=== PATIENT | female | born 1945 | race Caucasian/White ===

== ENCOUNTER → 2021-05-09 10:44 | Outpatient (CLI) | payer BC, SELFPAY ==
--- NOTE | ~2021-05-09 | US_ITS ---
EXAMINATION: US right upper quadrant DATE: 05/09/2021 11:20 INDICATION: Unspecified jaundice. Hyperbilirubinemia. TECHNIQUE: Multiple grayscale and Doppler ultrasound images of the abdomen were obtained. COMPARISON: None FINDINGS: The aorta is obscured by bowel gas. The visualized portions of the head and body of the kasper creas are normal. The liver is normal without focal lesion, but sensitivity is decreased by obesity. The gallbladder is normal in size. No gallstones or gallbladder wall thickening. There is no sonograp hic Powell sign. The common duct is normal and measures 3 mm. There is mild atrophy of right kidney. IMPRESSION: 1. No etiology for the patient's symptoms. Reviewed, dictated and finalized at location A.
== END ==
PROVIDERS: PCP Family Medicine; Visit Provider Family Medicine
DX: R17 Unspecified jaundice (principal)
CPT/HCPCS: 76705

== ENCOUNTER 2023-06-12 10:48 | Outpatient (CLI) | payer BC, SELFPAY ==
--- NOTE | ~2023-06-12 | CT_ITS ---
EXAMINATION: CTA chest DATE: 06/12/2023 11:17 INDICATION: Aortic root enlargement. TECHNIQUE: Computed tomographic angiography (CTA) of the chest was performed with 100 mL Omnipaque-35 0 intravenous contrast. Automated exposure control and iterative reconstruction technique were employ ed. The dose-length product was 181.27 mGy-cm. Maximum intensity projection 3D-reconstructions of the aorta and other arteries were constructed by the technologist on a separate workstation. COMPARISON: None. FINDINGS: The lungs demonstrate mild atelectasis. There are a few nodules in left lung measuring up t o 3 mm, likely benign. No pleural effusion. There are nodules in the thyroid measuring up to 14 mm, l ikely not clinically significant. The heart size is normal. There are coronary artery calcifications. No pericardial effusion. 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 There is mild aort ic atherosclerosis. The aorta measures 4.0 cm at the sinuses of Valsalva, 3.2 cm at the sinotubular j unction, 3.9 cm in the mid ascending aorta, 3.0 cm at the aortic isthmus, and 2.6 cm in the mid desce nding aorta. There is dextroscoliosis of thoracic spine and levoscoliosis of thoracolumbar spine. IMPRESSION: 1. Ectasia of proximal aorta measuring up to 4.0 cm at the sinuses of Valsalva. Reviewed, dictated and finalized at location A. 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
[2023-06-12 11:13] LABS: Estimated Glomerular Filt Rate > 60
== END 2023-06-12 10:49 | disposition home or self-care (01) ==
PROVIDERS: PCP Family Medicine; Visit Provider Internal Medicine Cardiovascular Disease
DX: I77.89 Other specified disorders of arteries and arterioles (principal); I35.1 Nonrheumatic aortic (valve) insufficiency
CPT/HCPCS: 71275; Q9967

== ENCOUNTER 2025-03-04 09:26 | Outpatient (CLI) | payer BC, SELFPAY ==
--- OUTSIDE RECORDS SUMMARY | 2009-03-24 05:15 | XMS_ITS | Continuity of Care Document ---
Author Organization [facility] Address [address] [place] [address] [place] [address] Phone Care Team Providers Care Nsh Teacher Name Role Phone Clive Cerna Unavailable Unavailable Procedures Procedure Date Eye Exam & Treatment Eye Exam & Treatment Refraction Eye Exam & Treatment Advance Directives Directive Yes / No Effective Date File Name No Information Encounters Encounter Description Practice Location Reason(s) For Visit Diagnoses Date Provider Providers Copied on Encounter [facility], [address] [place] [address] [address], [place], [place], [id number], tel:[phone] [facility] No Information 1-200 9 Krishnasamy Clive. [address], [facility] [place], [place]. tel:[phone] [facility], [address] [place] [address] [address], [place], [place], [id number], [place] tel:[phone] [facility] No Information 0-200 8 Krishnasamy Clive. 2421 [facility] [address], [place], [address], [place]. tel:[phone] [facility], [address] [place] [address] [address], [place], [place], [id number], [place] tel:[phone] [facility] No Information 6-200 7 Dalia Damian. [address] [facility] [place] [id number]. tel:[phone] Family History Family Member Type Diagnosis Age At Onset No Information Payers Payer name Insurance type Covered democrat ID [id number] friend(s) [place] FEP BL [id number] Social History Type Description Quantity Date Captured Comments Sex Female Smoking Status No Information Chief Complaint And Reason For Visit No Information Reason For Referral Reason For Referral No Information History Of Present Illness Encounter Date Complaint History Of Prese nt Illness No Information Functional Status Date Functional Assessmen t No Information Instructions Date Instruction Additional Infor mation No Information Assessments Type Assessment Date No Information Patient Care Teams Name Effective Dates (start - stop) Status Members No Information
--- NOTE | ~2025-03-04 | CT_ITS ---
EXAMINATION: CTA chest abdomen DATE: 03/04/2025 09:57 INDICATION: Abdominal aortic aneurysm without rupture. TECHNIQUE: Computed tomographic angiography (CTA) of the chest and abdomen was performed without and with 100 mL Omnipaque-350 intravenous contrast. The dose- length product was 174.24 mGy-cm. Maximum intensity projection 3D- reconstructions of the aorta and other arteries were constructed by the technol tete on a separate workstation. COMPARISON: CTA chest dated 06/12/2023. FINDINGS: CHEST/Abdomen CTA: Stable ectatic ascending thoracic aortic aneurysm measuring 4 cm. There is enlargement of the pulmonary arteries consistent with pulmonary hypertension. No significant pleural or pericardial effusion. There is ectasia of the abdominal aorta. The celiac axis, SMA and renal arteries are widely patent. Stable saccular aneurysm of the right renal artery which appears largely thrombosed measuring 7 mm. There is severe dextroscoliosis of the thoracic spine and levoscoliosis of the thoracolumbar spine. Stable small nodules measuring 3 mm or less, likely benign. No pneumothorax. No focal airspace consolidation. No endobronchial lesions. IMPRESSION: 1. Stable ectasia of the thoracic aorta measuring 4 cm near the sinus of Valsalva. Reviewed, dictated and finalized at location O. IMPRESSION: 1. Stable ectasia of the thoracic aorta measuring 4 cm near the sinus of Valsal va.
--- OUTSIDE RECORDS SUMMARY | 2025-03-04 09:30 | XMS_ITS | Encounter Summary ---
Author Organization [facility] Address [address] [place] [address] Care Team Providers Care Segmental Paver Installer Name Role Phone Carlos Alberto Johnson MD Primary Care Provider Bertha Gamboa DO Primary Care Provider [phone] Gabriela Solano NP Primary Care Provider [phone] Encounter Details Date Type Department Care Team (Late st Contact Info) Description 12/02/2017 Orders Only [facility] Health Information Management [address] [place] [address] Scanning, Provider Social History Tobacco Use Types Packs/Day Years Used Date Smoking Tobacco: Never Smokeless Tobacco: Never Alcohol Use Standard Drinks/Week Comments Yes 0 (1 standard drink = 0.6 oz pur e alcohol) Comments Unknown Sex and Gender Information Value Date Recorded Sex Assigned at Not on file 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 Gender Identity Female 11/21/2020 12:43 PM CDT Sexual Orientation Straight 11/21/2020 12 :43 PM CDT documented as of this encounter Plan of Treatment Not on file documented as of this encounter Procedures Procedure Name Priority Date/Time Associated Diagnosis Comments SCAN - RADIOLOGY/IMAGING 12/01/2017 CARDIOLOGY DOCUMENT SCAN 12/01/2017 documented in this encounter Results * SCAN - RADIOLOGY/IMAGING (12/01/2017) Anatomical Region Laterality Modality Other us Provider Scanning Final Result * Cardiology Document Scan (12/01/2017) Anatomical Region Laterality Modality Other us Provider Scanning CV CARDIAC SERVICES PROCEDURES Edited Result - Final documented in this encounter Visit Diagnoses Not on filedocumented in this encounter Care Teams Segmental Paver Installer Relationship Specialty Start Date End Date Carlos Alberto Johnson MD [address] [place] [address] PCP - General 10/11/16 05/18/20 Bertha Gamboa DO [address] [place] [address] PCP - General Family Medicine 05/19/20 03/11/24 Gabriela Solano NP [address] [place] [address] PCP - General Internal Medicine 03/12/24 documented as of this encounter
--- OUTSIDE RECORDS SUMMARY | 2025-03-04 09:30 | XMS_ITS | Clinical Summary ---
Author Organization [facility] [address] Address [address] [place] [address] Care Team Providers Care Strike On Machine Operator Name Role Phone Gabriela Solano NP Primary Care Provider [phone] Allergies Active Allergy Reactions Criticality Noted Date Comments Clarithromycin Unknown Low Clonidine Hcl Unknown Low Lisinopril Unknown Low 12/22/2017 Metoprolol Rash Medium 11/25/2024 Nickel Rash Medium 06/03/2014 Valsartan Unknown Low Medications aspirin (ADULT LOW DOSE ASPIRIN) 81 mg tablet Take 1 tablet (81 mg total) by mouth daily. 09/24/2017 Active Vitamin D3 50 mcg (2,000 unit) capsule Take 1 capsule (2,000 Units total) by mouth 3 (three) times a week 04/24/2022 Active amLODIPine (NORVASC) 10 mg tablet Take 1 tablet (10 mg total) by mouth daily 90 tablet 3 03/17/2024 Active losartan (COZAAR) 50 mg tablet TAKE 1 TABLET(50 MG) BY MOUTH DAILY 90 tablet 3 07/09/2024 Active rosuvastatin (CRESTOR) 5 mg tablet TAKE 1/2 TABLET BY MOUTH DAILY 45 tablet 2 08/20/2024 Active gabapentin (NEURONTIN) 400 mg capsule Take 1 capsule (400 mg total) by mouth 2 (two) times a day 60 capsule 3 11/29/2024 Active Active Problems Problem Noted Date Diagnosed Date Venous insufficiency 11/25/2024 Mixed hyperlipidemia 05/01/2022 Coronary artery disease invo lving stebbins coronary artery of stebbins heart without angina pectoris 12/29/2017 S/P coronary artery stent placement 12/29/2017 History of non-ST elevation myocardial infarctio n (NSTEMI) 12/22/2017 Presence of stent in coronary artery 12/22/2017 Asymptomatic varicose veins 03/21/2017 Aortic root enlargement 03/21/2017 Benign hypertension 10/09/2015 Overview (10/18/2016): HTN (hypertension), benign PVC's (premature ventricular contractions) 10/08 Overview (10/18/2016): PVC's (premature ventricular contractions) Aortic valve insufficiency 10/09/2015 Overview (10/18/2016): Aortic valve insufficiency, unspecified etiology Dizziness 04/10/2015 Overview (10/18/2016): Dizziness Osteopenia 07/13/2013 Osteoporosis 09/24/2012 Lumbago 06/04/2011 Notalgia 06/04/2011 Scoliosis 06/04/2011 Resolved Problems Problem Noted Date Diagnosed Date Resolved Date Dyslipidemia 12/29/2017 11/06/2022 Surgical History Surgery Date Site/Laterality Comments OOPHORECTOMY OOphorectomy TONSILLECTOMY Tonsillectomy BREAST BIOPSY Breast biopsy CARDIAC STENT PLACEMENT 12/02/2017 Medical History Medical History Date Comments Hypertension Hypertension Hx Other Medical Presyncope Acquired scoliosis Scoliosis Hx Other Medical Osteopenia Hx Other Medical Varicose Veins left leg Hx Other Medical Arrhythmias Family History Medical History Relation Name Comments Heart attack Father 2 Myocardial Infa rction; Cause of : Myocardial Infarction Relation Name Status Comments Father 1 (Age 59) Father 2 Social History Tobacco Use Types Packs/Day Years Used Date Smoking Tobacco: Never Smokeless Tobacco: Never Tobacco Cessation:Counseling Given: Not Answered Alcohol Use Standard Drinks/Week Comments Yes 0 (1 standard drink = 0.6 oz pur e alcohol) Comments Unknown Sex and Gender Information Value Date Recorded Sex Assigned at Not on file 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 Gender Identity Female 11/21/2020 12:43 PM CDT Sexual Orientation Straight 11/21/2020 12 :43 PM CDT Obstetrics History Last Filed Vital Signs Vital Sign Reading Time Taken Comments Blood Pressure 150/74 11/25/2024 11:00 AM CDT Pulse 93 11/25/2024 11:00 AM CDT Temperature - - Respiratory Rate 15 05/19/2020 9:35 AM STAVE AND BOLT EQUALIZER Oxygen Saturation 96% 11/25/2024 11:00 AM CDT Inhaled Oxygen Concentration - - Weight 52.3 kg (115 lb 6.4 oz) 11/25/2024 11:00 AM CDT Height 152.4 cm (5') 11/25/2024 11:00 AM CDT Body Mass Index 22.54 11/25/2024 11:00 AM CDT Plan of Treatment Health Maintenance Due Date Last Done Comments Depression Screening 1945 DTaP/Tdap/Td Vaccine (1 - Tdap) 11/19/1954 Hepatitis B Screening 11/19/1961 Pneumococcal vaccine 65+ (1 of 1 - PCV) 11/19/1993 Zoster Vaccine (1 of 2) 11/19/1993 Well Visit 65+ 11/19/2008 Osteoporosis Screening-Bone Density Scan 10/08/2015 10/07/2013, 09/24/2012 Fall Risk Assessment 05/19/2021 05/19/2020 Influenza Vaccine (#1) 2025 Procedures Procedure Name Priority Date/Time Associated Diagnosis Comments BONE MINERAL DENSITY 10/07/2013 from Last 3 Months or Most Recently Relevant to Health Maintenance Results * BONE MINERAL DENSITY (10/07/2013) Anatomical Region Laterality Modality Radiographic Paz ging Narrative 10/07/2013 Ordered by an unspecified provider. Historical Provider MD MENA DXA PROCEDURES Final Result from Last 3 Months or Most Recently Relevant to Health Maintenance Insurance [facility] FEDERAL MEDICARE [facility] Address: [address] [place] [phone] [facility] FEDERAL Care Teams Strike On Machine Operator Relationship Specialty Start Date End Date Gabriela Solano NP PCP - General Internal Medicine 03/12/24
--- OUTSIDE RECORDS SUMMARY | 2025-03-04 09:30 | XMS_ITS | Clinical Summary ---
Author Organization [facility] Address [address] [place] [address] Care Team Providers Care Solar Energy Systems Engineer Name Role Phone Carlos Alberto Johnson MD Primary Care Provider [phone] Source Comments [facility],non-owned Affiliates and Associated Physician Practices is amultiple site organization consisting of ambulatory clinics and hospital sitesin [place], [place], [place] and [place]. This disclosure is being madepursuant to the Care Everywhere program and may not contain all information available regarding this patient. Last updated [facility] [employer] Allergies Active Allergy Reactions Criticality Noted Date Comments Clarithromycin Rash 09/13/2009 Valsartan 09/13/2009 Cough Medications * Be aware that medications may not be up to date on this document. Alwaysverify current medications with the patient. rosuvastatin (Crestor) 5 MG tablet Take 2.5 mg by mouth once daily 04/05/2022 Active nitroGLYCERIN (Nitrostat) 0.[address] 1 TABLET(0.4 MG TOTAL) UNDER THE TONGUE EVERY 5 MINUTES NEEDED FOR CHEST PAIN. 12/13/2021 Active losartan (Cozaar) 50 MG tablet TAKE 1 TABLET(50 MG) BY MOUTH DAILY 04/24/2022 Active gabapentin (Neurontin) 300 MG capsule Take one Capsule TID 12/03/2021 Active Premarin 0.625 MG/GM vaginal cream APPLY PEA SIZE AMOUNT TO AFFECTED AREA EVERY NIGHT AT BEDTIME FOR 2 WEEKS 02/14/2022 Active aspirin EC (Ecotrin) 81 MG tablet Take 81 mg by mouth once daily Active amLODIPine (Norvasc) 10 MG tablet Take 10 mg by mouth once daily 04/05/2022 Active Active Problems Patient Care Coordination No te Formatting of this note migh t be different from the original. Primary Care Provider: Carlos Alberto Johnson MD [address] [place] [address] Referring Provider: Carlos Alberto Johnson MD [address] [place] [address] Problem Noted Date Diagnosed Date Vaginal enterocele 09/13/2009 Prolapse of vaginal vault after hysterectomy 09/2009 Family History Medical History Relation Name Comments Heart Disease Father Hypertension Father Cancer Mother cancer of volve per pt 04/2022 Hypertension Mother Depression Sister Relation Name Status Comments Father Mother Sister Social History Tobacco Use Types Packs/Day Years Used Date Smoking Tobacco: Never Smokeless Tobacco: Never Tobacco Cessation:Counseling Given: Not Answered Alcohol Use Standard Drinks/Week Comments No 0 (1 standard drink = 0.6 oz pur e alcohol) Comments No Sex and Gender Information Value Date Recorded Sex Assigned at Not on file Legal Sex Female 5:56 PM COMMISSIONING ENGINEER Gender Identity Not on file Sexual Orientation Not on file Last Filed Vital Signs Vital Sign Reading Time Taken Comments Blood Pressure 153/70 05/14/2024 11:42 AM CDT Pulse 87 05/14/2024 11:42 AM CDT Temperature 36.5 C (97.7 F) 05/14/2024 11:42 AM CDT Respiratory Rate - - Oxygen Saturation - - Inhaled Oxygen Concentration - - Weight 53.1 kg (117 lb) 05/14/2024 11:42 AM CDT Height 152.4 cm (5') 05/14/2024 11:42 AM CDT Body Mass Index 22.85 05/14/2024 11:42 AM CDT Plan of Treatment Upcoming Encounters Date Type Department Care Team (Late st Contact Info) Description 05/19/2025 10:30 AM COMMISSIONING ENGINEER Office Visit [facility] - [facility] [address] [place] [address] Yessica Montesinos MD [address] [place] [address] 05/19/2025 11:00 AM COMMISSIONING ENGINEER Appointment [facility] [address] [place] [address] Health Maintenance Due Date Last Done Comments DTAP/TDAP/TD VACCINES (1 - Tdap) 11/19/1962 PNEUMOCOCCAL VACCINE 50+ (1 of 1 - PCV) 11/19/1993 ZOSTER VACCINE (1 of 2) 11/19/1993 Respiratory Syncytial Virus (RSV) Vaccine Pt: or over 60 yrs (1 - 1-dose 75+ series) 11/19/2018 COVID-19 VACCINE (1 - 2023-2 5 season) 2024 DEPRESSION SCREENING 07/14/2024 INFLUENZA VACCINE (#1) 2025 BONE DENSITY TESTING Completed 10/07/2013, 09/24/2012 HEPATITIS B VACCINE Aged Out No longe r eligible based on patient's age to complete this topic HIB VACCINE Aged Out No longer eligi ble based on patient's age to complete this topic HPV VACCINE Aged Out No longer eligi ble based on patient's age to complete this topic MENINGOCOCCAL (Group B) VACCINE SHARED DECISION-MAKING Aged Out No longer eligible based on patient's age to complete this topic MENINGOCOCCAL GROUPS A/C/Y/W VACCINE Aged Out No longer eligible b ased on patient's age to complete this topic Insurance [facility] Care Teams Solar Energy Systems Engineer Relationship Specialty Start Date End Date Carlos Alberto Johnson MD [address] [place] [address] PCP - General 08/23/09
--- OUTSIDE RECORDS SUMMARY | 2025-03-04 09:30 | XMS_ITS | Clinical Summary ---
Author Organization [facility] Address [address] [place] [address] Phone Care Team Providers Care Fiction Writer Name Role Phone Carlos Alberto Johnson MD Primary Care Provider [phone] Allergies Active Allergy Reactions Criticality Noted Date Comments Clonidine Hcl Other (See Comments) 06/03/2014 . Nickel Rash Low 06/03/2014 Unclassified Drug Other (See Comments) 06/03/20 14 All HBP medications Medications amLODIPine (NORVASC) 10 mg tablet 05/23/2014 Active VITAMIN D2 50,000 unit capsule 05/04/2014 Active gabapentin (NEURONTIN) 300 mg capsule 05/24/2014 Active losartan (COZAAR) 50 mg tablet 05/07/2014 Active aspirin (ECOTRIN EC) 81 mg Tablet, Delayed Release (E.C.) Take 81 mg by mouth daily. Active rosuvastatin calcium (CRESTOR ORAL) Take 2.5 mg by mouth. Active Active Problems Patient Care Coordination No te Formatting of this note migh t be different from the original. Primary Care: Carlos Alberto Johnson MD Referring Provider: Carlos Alberto Johnson MD [address] [place] [address] Other: Problem Noted Date Diagnosed Date Encounter for screening mammogram for high-risk patient 06/08/2014 Resolved Problems Problem Noted Date Diagnosed Date Resolved Date Lump or mass in breast 06/03/201406/03 Abnormal mammogram 06/03/2014 5 Family History Medical History Relation Name Comments Heart Failure Father Diabetes Maternal Uncle Diabetes Paternal Grandfather Diabetes Paternal Grandmother Relation Name Status Comments Father Maternal Uncle Paternal Grandfather Paternal Grandmother Social History Tobacco Use Types Packs/Day Years Used Date Smoking Tobacco: Never Smokeless Tobacco: Never Alcohol Use Standard Drinks/Week Comments No 0 (1 standard drink = 0.6 oz pur e alcohol) Comments No Sex and Gender Information Value Date Recorded Sex Assigned at Not on file Legal Sex Female 2:21 PM CDT Gender Identity Not on file Sexual Orientation Not on file Last Filed Vital Signs Vital Sign Reading Time Taken Comments Blood Pressure 126/62 05/28/2019 11:12 AM REMELT SUGAR BOILER Pulse 93 05/19/2017 10:14 AM REMELT SUGAR BOILER Temperature - - Respiratory Rate - - Oxygen Saturation - - Inhaled Oxygen Concentration - - Weight 58 kg (127 lb 12.8 oz) 05/28/2019 11:12 A M REMELT SUGAR BOILER Height 152.4 cm (5') 05/28/2019 11:12 AM REMELT SUGAR BOILER Body Mass Index 24.96 05/28/2019 11:12 AM REMELT SUGAR BOILER Plan of Treatment Health Maintenance Due Date Last Done Comments DTAP/TDAP/TD VACCINES (1 - Tdap) 11/19/1962 PNEUMOCOCCAL VACCINE 50+ YEARS (1 of 1 - PCV) 11/19/18 94 ZOSTER VACCINE (1 of 2) 11/19/1993 OSTEOPOROSIS SCREENING 11/19/2008 RSV VACCINE (60+ or ) (1 - 1-dose 75+ series) 11/19/2018 INFLUENZA VACCINE (#1) 2025 Insurance [facility] FEDERAL Advance Directives For more information, please contact: [phone] Documents on File Type Date Recorded Patient Recruiting Team Lead Expl anation Advance Directive POA 05/13/2016 10:01 AM Advance Directive POA Care Teams Fiction Writer Relationship Specialty Start Date End Date Carlos Alberto Johnson MD [address] [place] [address] PCP - General Family Practice 06/03/14
[2025-03-04 09:50] LABS: Estimated Glomerular Filt Rate > 60
== END 2025-03-04 09:27 | disposition home or self-care (01) ==
PROVIDERS: PCP Family Medicine; Visit Provider Nurse Practitioner
DX: I71.40 Abdominal aortic aneurysm, without rupture, unspecified (principal)
CPT/HCPCS: 71275; 74175; Q9967

== ENCOUNTER 2025-06-21 16:18 | Outpatient (CLI) | payer BC, SELFPAY ==
--- NOTE | ~2025-06-21 | US_ITS ---
EXAMINATION: US carotid duplex BI DATE: 06/21/2025 16:55 INDICATION: Dizziness. Syncope. TECHNIQUE: Grayscale, color Doppler, and pulsed Doppler images of the cervical carotid arteries were obtained. The degree of vessel stenosis is placed in one of the following categories: normal, <50%, 50-69%, >=70% but less than near- occlusion, near-occlusion, or total occlusion. Note that percent stenosis relative to normal distal artery lumen diameter is indirectly measured from velocity measurements as described by Edd, et al. Radiology 2003; 229:340-346. COMPARISON: CT brain 11/24/2018. Carotid Doppler exam dated 10/18/2015. FINDINGS: RIGHT: The right common carotid artery (CCA) peak systolic velocity (PSV) is 62 cm/s. The right internal carotid artery (ICA) PSV is 70 cm/s. The right ICA end- diastolic velocity (EDV) is 18 cm/s. The right ICA/CCA PSV ratio is 1.1. Grayscale and color Doppler images yield an estimate of less than 50% diameter reduction from plaque in the ICA. There is antegrade flow in the right vertebral artery. LEFT: The left CCA PSV is 60 cm/s. The left ICA PSV is 63 cm/s. The left ICA EDV is 12 cm/s. The left ICA/CCA PSV ratio is 1.1. Grayscale and color Doppler images yield an estimate of less than 50% diameter reduction from plaque in the ICA. There is antegrade flow in the left vertebral artery. IMPRESSION: 1. Antegrade flow in both vertebral arteries. 2. No hemodynamically significant obstruction of common and internal carotid arteries in the neck. Interpretation based on NASCET criteria. Reviewed, dictated and finalized at location T. BUILDER AND ERECTOR IMPRESSION: 1. Antegrade flow in both vertebral arteries. 2. No hemodynamically significant obstruction of common and internal carotid ar teries in the neck. Interpretation based on NASCET criteria.
--- OUTSIDE RECORDS SUMMARY | 2025-06-21 18:59 | XMS_ITS | Clinical Summary ---
Author Organization [facility] Address [address] [place] [address] Care Team Providers Care Business Systems Lead Name Role Phone Gabriela Solano APRN-OYSTER SHIPPER Primary Care Provider + Source Comments [facility] [employer] [employer],non-owned Affiliates and Associated Physician Practices is amultiple site organization consisting of ambulatory clinics and hospital sitesin [place], [place], [place] and [place]. This disclosure is being madepursuant to the Care Everywhere program and may not contain all information available regarding this patient. 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 Breast Care [address] [place] [address] Discharge Disposition: Home or Self Care 05/19/2025 Travel from Last 3 Months Family History Medical History Relation Name Comments [...] on file Legal Sex Female 5:56 PM INDUSTRIAL GAS FITTER Gender Identity Not on file Sexual Orientation Not on file Last Filed Vital Signs Vital Sign Reading Time Taken Comments Blood Pressure 119/56 05/19/2025 11:46 AM INDUSTRIAL GAS FITTER Pulse 76 05/19/2025 11:46 AM INDUSTRIAL GAS FITTER Temperature 36.8 C (98.2 F) 05/19/2025 11:46 AM INDUSTRIAL GAS FITTER Respiratory Rate - - Oxygen Saturation - - Inhaled Oxygen Concentration - - Weight 51.3 kg (113 lb) 05/19/2025 11:46 AM INDUSTRIAL GAS FITTER Height 149.9 cm (4' 11) 05/19/2025 11:46 AM INDUSTRIAL GAS FITTER Body Mass Index 22.82 05/19/2025 11:46 AM INDUSTRIAL GAS FITTER Plan of Treatment Upcoming Encounters Date Type Department Care Team (Late st Contact Info) Description 05/25/2026 11:00 AM INDUSTRIAL GAS FITTER Appointment [address] [address] Health Maintenance Due Date Last Done Comments DTAP/TDAP/TD VACCINES (1 - Tdap) 11/19/1962 PNEUMOCOCCAL VACCINE 50+ (1 of 1 - PCV) 11/19/1993 ZOSTER VACCINE (1 of 2) 11/19/1993 Respiratory Syncytial Virus (RSV) Vaccine Pt: or over 60 yrs (1 - 1-dose 75+ series) 11/19/2018 DEPRESSION SCREENING 07/14/2024 COVID-19 VACCINE ( season) 2025 03/13/2022, 06/22/2021, 10/20/2020, Additional history exists INFLUENZA VACCINE (#1) 2025 BONE DENSITY TESTING Completed 10/07/2013, 09/25/19 13 HEPATITIS B VACCINE Aged Out No longe [...] A/C/Y/W VACCINE Aged Out No longer eligible based on patient's age to complete this topic Procedures Procedure Name Priority Date/Time Associated Diagnosis Comments MAMMO BILAT SCREENING W OWEN Routine 05/19/2025 10:39 AM INDUSTRIAL GAS FITTER Encounter for screening mammogram for malignant neoplasm of breast from Last 3 Months Results * Mammo Bilat Screening W Owen (05/19/2025 10:39 AM INDUSTRIAL GAS FITTER) Anatomical Region Laterality Modality Breast Bilateral Mammography 05/19/2025 12:3 9 PM INDUSTRIAL GAS FITTER Impressions 05/19/2025 12:39 PM INDUSTRIAL GAS FITTER IMPRESSION: No mammographic evidence of malignancy in either breast. ASSESSMENT: BI-RADS CATEGORY 1: NEGATIVE. RECOMMENDATION: Bilateral screening mammogram in one year. Thank you for allowing us to participate in the care of your patient. [facility] Breast Care utilizes [employer] as a reminder system to notify patients of their next recommended mammogram. > Interpreting Provider: Letty Mendez MD on 05/19/2025 12:39 PM Narrative 05/19/2025 12:39 PM INDUSTRIAL GAS FITTER EXAMINATION: Digital screening mammogram. Low-dose full-field digital breast tomosynthesis examination was performed with synthetic 2D images. Computer assisted detection was utilized. DATE: 05/19/2025 10:40 AM PRIOR: 2023 and prior mammograms dating back to 2021. BREAST PARENCHYMAL DENSITY: Category C: The breasts are heterogeneously dense which may obscure small masses. FINDINGS: No suspicious masses, areas of architectural distortion or microcalcifications are evident on synthetic 2D mammogram or tomosynthesis images. There has been no significant interval change since the prior examination. us Yessica Montesinos MD MAMMO ORDERABLES Final Result from Last 3 Months Insurance [facility] Care Teams Business Systems Lead Relationship Specialty Start Date End Date Gabriela Solano, COAL CAGER-OYSTER SHIPPER [address] [place] [address] PCP - General Nurse Practitioner Family 05/19/25
--- OUTSIDE RECORDS SUMMARY | 2025-06-21 18:59 | XMS_ITS | Clinical Summary ---
Author Organization [facility] Address [address] [place] [address] Phone Care Team Providers Care Police Captain Name Role Phone Carlos Alberto Johnson MD Primary Care Provider [phone] Allergies Active Allergy Reactions Criticality Noted Date [...] Johnson MD [address] [place] [address] Other: Problem Noted Date Diagnosed Date Encounter for screening mammogram for high-risk patient 06/08/2014 Resolved Problems Problem Noted Date Diagnosed Date Resolved Date Lump or mass in breast 06/03/201406/03 Abnormal mammogram 06/03/2014// 5 Family History Medical History Relation Name [...] Comments Blood Pressure 126/62 05/28/2019 11:12 AM CRIMINALIST TECHNICIAN Pulse 93 05/19/2017 10:14 AM CRIMINALIST TECHNICIAN Temperature - - Respiratory Rate - - Oxygen Saturation - - Inhaled Oxygen Concentration - - Weight 58 kg (127 lb 12.8 oz) 05/28/2019 11:12 A M CRIMINALIST TECHNICIAN Height 152.4 cm (5') 05/28/2019 11:12 AM CRIMINALIST TECHNICIAN Body Mass Index 24.96 05/28/2019 11:12 AM CRIMINALIST TECHNICIAN Plan of Treatment Health Maintenance Due Date Last Done Comments DTAP/TDAP/TD VACCINES (1 - Tdap) 11/19/1962 PNEUMOCOCCAL VACCINE 50+ YEARS (1 of 1 - PCV) 11/19/18 94 ZOSTER VACCINE (1 of 2) 11/19/1993 OSTEOPOROSIS SCREENING 11/19/2008 RSV VACCINE (60+ or ) (1 - 1-dose 75+ series) 11/19/2018 INFLUENZA VACCINE (#1) 2025 Insurance [facility] Advance Directives For more information, please contact: [phone] Documents on File Type Date Recorded Patient Disciplinary Hearing Officer Expl anation Advance Directive POA 05/13/2016 10:01 AM Advance Directive POA Care Teams Police Captain Relationship Specialty Start Date End Date Carlos Alberto Johnson MD [address] [place] [address] PCP - General Family Practice 06/03/14
== END 2025-06-21 16:19 | disposition home or self-care (01) ==
PROVIDERS: PCP Internal Medicine; Visit Provider Nurse Practitioner
DX: R42 Dizziness and giddiness (principal)
CPT/HCPCS: 93880